=== PATIENT | male | born 1970 | race Caucasian/White ===

== ENCOUNTER 2019-12-10 15:59 | Outpatient (CLI) | payer OTHER | END 2019-12-10 16:00 | disposition EMS.NT | LOC: EMS 15:59 | PROVIDERS: ATTEND Surgery | DX: S61.011A Laceration without foreign body of right thumb without damage to nail, initial encounter (principal); W27.8XXA Contact with other nonpowered hand tool, initial encounter; Y92.009 Unspecified place in unspecified non-institutional (private) residence as the place of occurrence of the external cause ==

== ENCOUNTER 2019-12-10 16:38 | Emergency (ER) | payer OTHER ==
[2019-12-10 16:47] VITALS: BP 133/85
--- NOTE | 2019-12-10 16:53 | ED Physician Documentation ---
PD HPI UPPER EXT INJURY - Stated complaint Stated Complaint: L THUMB LAC - Chief complaint Chief Complaint: Laceration - History obtained from History obtained from: Patient - History of Present Illness Location: Left, Finger (palmar fat pad of the thumb.) Type of injury: Laceration (he was splitting kindling with hatchet and caught thumb, causing flap lac of the distal phalanx palmar side. Still with some bleeding.) Where injury occurred: [place] ([place]ground) Timing - onset: Today (shortly SCREW DOWN) Timing - details: Abrupt onset, Still present Worsened by: Palpating. No: Moving Associated symptoms: Numbness (at the lacerated flap of skin). No: Weakness Similar symptoms before: Has not had sx before Review of Systems Constitutional: denies: Fever Nose: denies: Rhinorrhea / runny nose, Congestion Throat: denies: Sore throat Respiratory: denies: Cough PD PAST MEDICAL HISTORY - Allergies Allergies/Adverse Reactions: Allergies Allergy/AdvReac Type Severity Reaction Status Date / Time No Known Drug Allergies Allergy Verified 12/10/19 16:43 PD ED PE NORMAL - Vitals Vital signs reviewed: Yes - General General: Alert and oriented X 3, No acute distress, Well developed/nourished - Neuro Neuro: Alert and oriented X 3, No motor deficit, Normal speech, Other (left thumb with flap lac 3 cm, involving much of the palmar fat pad distal to the IP joint. Just full thickness. No exposure of bone. Ongoing mild bleeding. Able to flex and extend strongly. Decreased sensation at flap of skin. Good color of it. ) Results - Vitals Vitals: Vital Signs - 24 hr 12/10/19 16:44 Temperature 36.8 C Heart Rate 70 Respiratory 16 Rate Blood Pressure 133/85 H O2 Saturation 98 Oxygen O2 Source Room air Procedures - Laceration (location) left thumb distal phalanx Length in cm: 3 Wound type: Flap, Into subcut fat, Clean. No: Into muscle Neurovascular status: Motor intact, Vascular intact. No: Sensory intact Tendon involvement: Tendon intact Anesthesia: Lidocaine 1% (digital block) Wound Preparation: Irrigated copiously NS, Wound explored, To the base. No: FB identified Skin layer closure: Nylon, Running, Size #-0 - enter number (5), Sutures - enter # (17) Other: Patient tolerated well, No complications, Neurovascular intact, Dressing applied, Tetanus booster given Complexity: Simple Departure - Departure Disposition: 01 Home, Self Care Clinical Impression: Thumb laceration Qualifiers: Encounter type: initial encounter Damage to nail status: without damage Foreign body presence: without foreign body Laterality: left Qualified Code(s): S61.012A - Laceration without foreign body of left thumb without damage to nail, initial encounter Condition: Stable Record reviewed to determine appropriate education?: Yes Instructions: ED Laceration Hand Follow-Up: Fernando Staton MD [Primary Care Provider] - Comments: It is okay to wash and shower. Clean off the wound twice a day with soap and water, or peroxide and water. Apply some antibiotic ointment to it to keep it moist. Also to watch for signs of infection such as purulence, redness or increasing pain. Return to your primary care or the ER at the specified time for suture removal. Suture removal 8 to 10 days. You were given a tetanus booster here which is good for 10 years. Discharge Date/Time: 12/10/19 18:14
[2019-12-10] MEDS ORDERED: LIDOCAINE 2% 50 ML MDV SUBQ STA (17:11)
[2019-12-10] MEDS ORDERED: TETANUS/DIPHTHERIA/PERTUSSIS 0.5 ML SYRINGE IM ONE (17:12)
[2019-12-10] MEDS ORDERED: LIDOCAINE 1% 2 ML VIAL SUBQ STA (17:18)
== END 2019-12-10 18:14 | disposition home or self-care (01) ==
LOC: ED 16:38
DX: S61.012A Laceration without foreign body of left thumb without damage to nail, initial encounter (principal); W27.8XXA Contact with other nonpowered hand tool, initial encounter; Y93.89 Activity, other specified; Y92.833 Campsite as the place of occurrence of the external cause; Z23 Encounter for immunization
CPT/HCPCS: 12002; 90471; 99283